=== PATIENT | male | born 1965 | race Caucasian/White ===

== ENCOUNTER 2020-06-03 08:50 | Emergency (ER) | payer BC ==
[~2020-06-03] VITALS: Ht 180.3 cm; Wt 87.8 kg
--- NOTE | 2020-06-03 09:12 | NUR ---
PT BIB BY EMS FOR CHEST PAIN. PT WAS A WORK DRINKING COFFEE AND SITTING WITH CO-WORKERS WHEN THE PAIN OCCURED. PAIN WAS DESCRIBED STABBING AND LASTED FOR A FEW MINUTES BEFORE SUBSIDING ON ITS OWN. PT ALSO FELT DIZZY AND FLUSHED WITH THE EPISODE. PT DENIES ANY CARDIAC HX. IV ESTABLISHED BY EMS, 20 GA RAC. PT GIVEN ASPIRIN BENDING ROLL HAND BY EMS DISPATCH 325 MG. PT DENIES CHEST PAIN, ABD PAIN, GI SYMPTOMS, OR ANY DISCOMFORT.
[2020-06-03 09:23] LABS: BASOPHILS % (AUTO) 1 % (0-1); EOSINOPHILS % (AUTO) 1 % (1-7); LYMPHOCYTES % (AUTO) 19 % (22-44); MEAN PLATELET VOLUME 7.8 fL (7.4-10.4); MONOCYTES % (AUTO) 9 % (2-9); NEUTROPHILS % (AUTO) 70 % (42-75); PLATELET COUNT 201 x10^3/uL (130-400); RED BLOOD COUNT 4.43 x10^6/uL (4.38-5.82); RED CELL DISTRIBUTION WIDTH 14.1 % (9.4-14.8)
[2020-06-03 09:24] LABS: MD NO
[2020-06-03 09:35] LABS: ANION GAP 7 mmol/L (5-15); CALCIUM 9.2 mg/dL (8.5-10.1); CHLORIDE 114 mmol/L (98-107)
[2020-06-03 09:41] LABS: ALANINE AMINOTRANSFERASE 34 U/L (12-78); ALKALINE PHOSPHATASE 111 U/L (45-117); BILIRUBIN,TOTAL 0.5 mg/dL (0.2-1.0); CREATININE 0.98 mg/dL (0.7-1.3); TOTAL PROTEIN 7.2 g/dL (6.4-8.2); TROPONIN I < 0.015 ng/mL (0.000-0.045)
[2020-06-03 10:13] VITALS: BP 165/110
--- NOTE | 2020-06-03 10:14 | NUR ---
PT REC'VD DISCHARGE INSTRUCTIONS AND EDUCATION. PT HAD NO FURTHER QUESTIONS. PT AMBULATED TO DC AREA, STEADY GAIT.
--- NOTE | 2020-06-03 10:14 | NUR ---
PT IV REMOVED
== END 2020-06-03 10:16 | disposition home or self-care (01) ==
LOC: ED 09:40
DX: R07.89 Other chest pain (principal)
CPT/HCPCS: 36415; 71045; 80053; 83605; 83690; 84484; 85025; 85379; 93005; 99285